=== PATIENT | female | born 1950 | race Caucasian/White ===

== ENCOUNTER 2021-04-20 14:16 | Inpatient (IN) ==
[2021-04-20] MEDS ORDERED: IOPAMIDOL 100 ML BOTTLE IV ONE (14:17)
[2021-04-20 15:23] LABS: Basophils # (Auto) 0.03 K/mcL (0.00-0.20); Basophils % (Auto) 0.2 % (0.0-2.0); Eosinophils # (Auto) 0.01 K/mcL (0.00-0.70); Eosinophils % (Auto) 0.1 % (0.0-7.0); Hematocrit 29.6 % (36.0-48.0); Lymphocytes # (Auto) 0.75 K/mcL (1.50-4.80); Lymphocytes % (Auto) 4.3 % (15.0-49.0); Mean Cell Volume 80.2 fL (80.0-100.0); Mean Corpuscular HGB Conc 30.4 g/dL (31.0-36.0); Mean Platelet Volume 11.6 fL (7.4-10.4); Monocytes # (Auto) 0.59 K/mcL (0.10-0.90); Monocytes % (Auto) 3.4 % (1.0-12.0); Platelet Count 208 K/mcL (140-440); RBC 3.69 M/mcL (4.00-5.20); Red Cell Distribution Width 16.4 % (11.5-14.5); WBC 17.3 K/mcL (4.5-11.0)
[2021-04-20] MEDS ORDERED: ONDANSETRON 4 MG/2 ML VIAL IV ONE (15:26)
[2021-04-20] MEDS ORDERED: morphine 4 MG/ML VIAL IV ONE ×2 (15:26→16:58)
--- NOTE | 2021-04-20 15:26 | Emergency Department Note ---
Abdominal Pain HPI General Chief Complaint: Abdominal Pain Stated Complaint: Abd pain Time Seen by Provider: 04/20/21 14:22 Source: patient Mode of arrival: ambulatory Limitations: no limitations History of Present Illness HPI Narrative: Narrative: 70-year-old female presents emergency department with complaints of right-sided abdominal pain. She reports it first started about 2 weeks ago but was not severe and then 2 days ago it started to get worse where she describes as constant squeezing-like pain that is in her right upper quadrant radiates to her right lower quadrant and around to her right flank. She has been having nausea and did vomit last night. She thinks that the pain is worsened with eating. She does fever, dysuria, urinary frequency or urgency, chest pain, shortness of breath, black or bloody stools, hematemesis. Related Data Home Medications Medication Instructions Recorded Confirmed acyclovir 5 gm TP PRN PRN 12/01/16 02/01/21 calcium carbonate 500 mg PO BID 12/01/16 04/20/21 multivitamin 1 each PO DAILY 12/01/16 04/20/21 L.acidophilus-B.lactis-B.longum 15 1 cap PO QDAY 02/06/19 02/01/21 billion cell capsule cholecalciferol (vitamin D3) 125 5,000 unit PO QDAY 02/06/19 02/01/21 mcg (5,000 unit) capsule epinephrine 0.3 mg/0.3 mL 0.3 mg IM ONCE 02/06/19 04/20/21 injection, auto-injector ascorbate calcium (vitamin C) 500 1 g PO BID tab 03/18/19 02/01/21 mg tablet CPAP machine #1 ea 09/04/19 02/01/21 Florajen3 1 cap PO 04/20/21 ascorbate calcium (vitamin C) 500 mg PO BID 04/20/21 04/20/21 [Denia-C] cholecalciferol (vitamin D3) 125 mcg PO QDAY 04/20/21 04/20/21 [Vitamin D3] mometasone-dimethicone 0 applic TOPICAL .COMPLEX 04/20/21 04/20/21 pravastatin 40 mg PO QDAY 04/20/21 04/20/21 valacyclovir [Valtrex] 2,000 mg PO Q12H 04/20/21 04/20/21 Previous Rx's Medication Instructions Recorded CPAP 9 to 15 cmH20 #1 ea 09/04/19 acyclovir 800 mg tablet 800 mg PO QDAY #10 tab 11/23/20 naproxen 500 mg tablet 250 mg PO Q12H #180 tab 11/23/20 amlodipine 5 mg tablet 5 mg PO QDAY #90 tab 01/24/21 levothyroxine 50 mcg tablet 50 mcg PO DAILY #90 tab 01/24/21 ramipril 2.5 mg capsule 2.5 mg PO QDAY #90 cap 01/24/21 Allergies Allergy/AdvReac Type Severity Reaction Status Date / Time Bee Pollen Allergy Severe Swelling Verified 04/20/21 14:17 nitrofurantoin Allergy Intermediate Abd Verified 04/20/21 17:09 [From Macrodantin] cramping/Blood in stool propoxyphene [From Darvon] Allergy Unknown Unknown Verified 04/20/21 14:17 atorvastatin AdvReac Intermediate Joint Pain Verified 04/20/21 14:17 compound for teeth AdvReac Intermediate Skin Uncoded 04/20/21 17:09 impressions peeling, burning Review of Systems ROS ROS Narrative: Narrative: Gastrointestinal: Reports abdominal pain, nausea and vomiting Musculoskeletal: Reports other PFSH Narrative Patient History Narrative: Narrative: Medical/Surgical/Family History All Active Problems (Updated 04/20/21 @ 17:19 by Pavel Mccormick MD) Pyelonephritis of right kidney (Acute) Encounter to establish care (Acute) HSV-1 (herpes simplex virus 1) infection (Acute) Aortic valve insufficiency (Acute) Medicare annual wellness visit, subsequent (Acute) LOVELY on CPAP (Chronic) Pain in joints of left hand (Chronic) Pain in joints of right hand (Chronic) Shingles (Chronic) Sleep apnea in adult (Chronic) Osteoarthritis involving multiple joints on both sides of body (Chronic) Bee sting allergy (Chronic) Hypothyroidism, unspecified (Chronic) Age-related osteoporosis without current pathological fracture (Chronic) Menopausal and female climacteric states (Chronic) Hyperlipidemia, unspecified (Chronic) Nonrheumatic aortic (valve) insufficiency (Chronic) Essential (primary) hypertension (Chronic) Rectocele (Chronic) Cystocele, midline (Chronic) Incomplete uterovaginal prolapse (Chronic) Medical History (Updated 04/20/21 @ 17:19 by Pavel Mccormick MD) Age-related osteoporosis without current pathological fracture Aortic valve insufficiency Bee sting allergy Cystocele, midline Encounter to establish care Essential (primary) hypertension HSV-1 (herpes simplex virus 1) infection Hyperlipidemia, unspecified Hypothyroidism, unspecified Incomplete uterovaginal prolapse Medicare annual wellness visit, subsequent Menopausal and female climacteric states Nonrheumatic aortic (valve) insufficiency LOVELY on CPAP Osteoarthritis involving multiple joints on both sides of body Pain in joints of left hand Pain in joints of right hand Rectocele Shingles Sleep apnea in adult Surgical History History of biopsy (~02/20/14) Vaginal History of hip surgery (~2007) R hip resurfaced-Dr Ramsay & 01/29/18 History of surgery 2008 hip resurface per patient. Family History Mother , at 78 yrs Heart disease Grandfather Colon cancer Paternal Grandmother Diabetes Father Heart disease Family/Other Multiple sclerosis Other Family history of coronary artery disease Family history of diabetes mellitus (DM) Social History Smoking Status: Never smoker Alcohol Intake Frequency: does not drink Exam Narrative Narrative: Narrative: Abdomen: There is voluntary guarding with palpation of each quadrant. There is more tenderness with palpation in right upper quadrant and left lower quadrant. There is pain over McBurney's point. There is positive Arceo sign. There is no rebound tenderness nondistended General Limitations: no limitations General appearance: Present other (mild distress) Eye Eye: Present EOMI Respiratory Respiratory: Present normal lung sounds bilaterally and other (No rhonchi rales or wheezes) Cardiovascular Cardiovascular: Present regular rate and normal rhythm Adbominal Abdominal: Present other Back Back: Present other (Mild right CVA tenderness) Neurological Neurological: Present alert and oriented X3 Psychiatric Psychiatric: Present normal affect and normal mood Skin Skin: Present warm (WNL), dry and normal color Course Vital Signs Vital signs: Vital Signs Temperature 98.1 F 04/20/21 14:17 Pulse Rate 86 04/20/21 14:17 Respiratory Rate 16 04/20/21 14:17 Blood Pressure 111/55 04/20/21 14:17 Pulse Oximetry (%) 95 04/20/21 14:17 Temperature 98.1 F 04/20/21 14:17 Pulse Rate 86 04/20/21 14:17 Respiratory Rate 16 04/20/21 14:17 Blood Pressure 111/55 04/20/21 14:17 Pulse Oximetry (%) 95 04/20/21 14:17 MDM MDM Narrative Medical decision making narrative: Narrative: Labs reviewed. There is a leukocytosis and an H&H is a low compared to December. CT of abdomen pelvis shows severe hydroureter and dilated renal pelvis of the right kidney and ureter. There is periuretic and perirenal stranding consistent with obstruction. Urine dip is nitrite positive. I have ordered 1 L of normal saline along with IV ceftriaxone. I spoke with the urologist Dr. Lin and due to the patient's symptoms he agreed to fit her into his schedule tomorrow afternoon for possible stent placement. He asked the patient to be admitted to the hospitalist for IV antibiotics and fluid resuscitation. Right upper quadrant limited ultrasound was negative Dr. Mccormick was consulted and he agreed to admit the patient for further evaluation and treatment with the Dr. Lin consulting tomorrow. Lab Data Result diagrams: 04/20/21 14:40 04/20/21 14:40 Labs: Lab Results 04/20/21 Range/Units 14:40 WBC 17.3 H (4.5-11.0) K/mcL RBC 3.69 L (4.00-5.20) M/mcL Hgb 9.0 L (12.0-15.0) g/dL Hct 29.6 L (36.0-48.0) % MCV 80.2 (80.0-100.0) fL MCH 24.4 L (26.0-34.0) pg MCHC 30.4 L (31.0-36.0) g/dL RDW 16.4 H (11.5-14.5) % Plt Count 208 (140-440) K/mcL MPV 11.6 H (7.4-10.4) fL Neut % (Auto) 92.0 H (38.0-78.0) % Lymph % (Auto) 4.3 L (15.0-49.0) % [place] % (Auto) 3.4 (1.0-12.0) % Eos % (Auto) 0.1 (0.0-7.0) % Baso % (Auto) 0.2 (0.0-2.0) % Lymph # (Auto) 0.75 L (1.50-4.80) K/mcL [place] # (Auto) 0.59 (0.10-0.90) K/mcL Eos # (Auto) 0.01 (0.00-0.70) K/mcL Baso # (Auto) 0.03 (0.00-0.20) K/mcL Absolute Neutrophils 15.90 H (1.80-8.00) K/mcL Discharge Plan Patient/Caregiver Discharge Instructions Pt seen by [employer]/PA only: Yes Clinical Impression: Hydronephrosis, Acute UTI Patient Disposition: Xfer As Inpt ([facility]) Condition: Serious Follow up with: Thalia Álvarez DO [Primary Care Provider] - Prescriptions: No Action naproxen [Naprosyn] 500 mg tablet 250 mg PO Q12H Qty: 180 RF: 0 acyclovir 800 mg tablet 800 mg PO QDAY Qty: 10 RF: 0 amlodipine 5 mg tablet 5 mg PO QDAY Qty: 90 RF: 1 ramipril 2.5 mg capsule 2.5 mg PO QDAY Qty: 90 RF: 1 levothyroxine 50 mcg tablet 50 mcg PO DAILY Qty: 90 RF: 1 epinephrine [EpiPen 2-Westley] 0.3 mg/0.3 mL auto-injector 0.3 mg IM ONCE RF: 0 cholecalciferol (vitamin D3) 5,000 unit capsule 5,000 unit PO QDAY RF: 0 Florajen3 460 mg (7.5-6- 1.5 bill. cell) capsule 1 cap PO QDAY RF: 0 ascorbate calcium (vitamin C) 500 mg tablet 1 g PO BID RF: 0 (DME) CPAP machine Qty: 1 RF: 0 (DME) CPAP 9 to 15 cmH20 Qty: 1 RF: 0 multivitamin 1 EACH tablet 1 each PO DAILY RF: 0 calcium carbonate 500 MG tablet 500 mg PO BID RF: 0 acyclovir 5 GM cream 5 gm TP PRN PRN (Reason: Mouth Sore Pain) RF: 0 pravastatin 40 mg Tablet 40 mg PO QDAY RF: 0 valacyclovir [Valtrex] 1 gram Tablet 2,000 mg PO Q12H RF: 0 ascorbate calcium (vitamin C) [Denia-C] 500 mg Tablet 500 mg PO BID RF: 0 cholecalciferol (vitamin D3) [Vitamin D3] 125 mcg (5,000 unit) Tablet 125 mcg PO QDAY RF: 0 mometasone-dimethicone 0.1-5 % Cream 0 applic TOPICAL .COMPLEX RF: 0 Florajen3 1 cap PO RF: 0
--- NOTE | 2021-04-20 15:34 | Cat Scan Report ---
INDICATION: RUQ and RLQ abdominal pain n/v x 2days COMPARISON: Previous examination dated 06/20/2013 TECHNIQUE: Axial images were obtained through the abdomen and pelvis. Sagittally and coronally reformatted images. 80 mL Isovue 370 injected intravenously. FINDINGS: Lung bases:Negative. No pulmonary parenchymal nodule. No pleural fluid or pericardial fluid. There is bilateral parenchymal density consistent with atelectasis There is cardiomegaly. This is unchanged Liver:Negative. No focal intrahepatic mass. No focal abnormality. Liver contour is smooth. No evidence for cirrhosis Gallbladder, bilary:No calcified gallstones. No gallbladder wall thickening. No dilated intra or extrahepatic bile ducts. Spleen:No splenomegaly. Normal enhancement of splenic and portal veins. Pancreas:No pancreatic mass. No peripancreatic abnormality Adrenal glands:Negative Kidneys, ureters, bladder:Left kidney is negative. No left hydronephrosis. No detectable calculi. No solid or cystic left renal mass. There has been significant interval improvement. Previous examination demonstrated left hydronephrosis and enlargement of the left renal pelvis. Left ureter was dilated. The left ureter presently is within normal limits. Severe right hydronephrosis with marked dilatation of the right renal pelvis and ureter. Right ureter is dilated to the urinary bladder. The pelvis, however, is poorly evaluated due to extensive beam hardening artifact from bilateral total hip arthroplasty. There is no detectable right ureteral stone. There is infiltration of retroperitoneal fat. This is perinephric and periureteric within the posterior pararenal space. This may indicate acute recurrent obstruction and dilatation. There are right renal cysts. No solid mass. Bladder is not well-visualized. Gastrointestinal:No detectable colonic mass. There is no diverticulitis. Small bowel is negative. No mechanical small bowel obstruction. Stomach and duodenum are unremarkable Appendix: The appendix is negative Vascular:There is calcified plaque in the abdominal aorta. No abdominal aortic aneurysm. There is calcification of the origins of the celiac trunk and superior mesenteric artery. No significant stenosis Lymphatic:No retroperitoneal or mesenteric adenopathy Mesentery, peritoneum: No free intraperitoneal fluid. No intra-abdominal abscess Reproductive:Uterus is suboptimally visualized. No adnexal mass. Patient has a history of pelvic floor prolapse. There is a pessary in place. Musculoskeletal: Multilevel degenerative disc disease in the lumbar spine No lumbar compression fractures. Sacrum and pelvis are negative. Bilateral total hip proper plasty No abdominal wall or inguinal hernia IMPRESSION: 1. Interval resolution of left hydronephrosis and hydroureter 2. Marked dilatation of right renal pelvis and right ureter. This may be persistent or recurrent. No detectable calculi 3. Infiltration of periureteric and perirenal fat consistent with obstruction 4. History of pelvic floor relaxation. There is a pessary in place 5. Multilevel degenerative disc disease 6. Atherosclerotic calcification 7. Cardiomegaly 8. Negative appendix The exam was performed using radiation dose optimization techniques including, but not limited to, automated exposure control, adjustment of the mA and/or kV according to patient size and use of iterative reconstruction technique. Interpreted and Authenticated by: Jarrell Bolden 04/20/21
[2021-04-20 15:43] LABS: ALT/SGPT 9 U/L (<40); AST/SGOT 17 U/L (<32); Albumin 3.7 gm/dL (3.2-5.2); Albumin/Globulin Ratio 1.5 (1.0-2.3); Alkaline Phosphatase 68 U/L (39-117); Bilirubin,Total 0.6 mg/dL (0.1-1.0); Blood Urea Nitrogen 28 mg/dL (8-23); Calcium 9.4 mg/dL (8.6-10.4); Carbon Dioxide 25 mmol/L (22-30); Chloride 104 mmol/L (96-108); Globulin 2.5 gm/dL (2.2-3.7); Glomerular Filtration Rate 56; Glucose 91 mg/dL (70-105)
--- NOTE | 2021-04-20 15:56 | Ultrasound Report ---
INDICATION: RUQ and RLQ abdominal pain n/v x 2days TECHNIQUE: Grayscale and color flow Doppler spectral imaging COMPARISON: CT scan dated 04/20/2021 FINDINGS: Gallbladder:Negative. No cholelithiasis. No gallbladder wall thickening or pericholecystic fluid Common bile duct:Common bile duct is mildly dilated. No intrahepatic bile duct dilatation. No detectable choledocholithiasis. Common bile duct measures9 mm maximally Liver:Normal homogeneous hepatic parenchyma. No hepatic mass. Liver [id number] cm Portal vein:Normal hepatopedal portal venous flow Pancreas:Visualized portions of the pancreas are normal Right kidney:There is right hydronephrosis with marked dilatation of the right renal pelvis. There are benign right renal cysts. No solid mass. No detectable calculi. Right kidney [id number] x 3.1 x 4.9 cm IMPRESSION: 1. Negative gallbladder 2. Prominent common bile duct without detectable choledocholithiasis. No intrahepatic bile duct dilatation 3. Right hydronephrosis as demonstrated on previous CT scan Interpreted and Authenticated by: Jarrell Bolden 04/20/21
[2021-04-20] MEDS ORDERED: 0.9 % SODIUM CHLORIDE 1,000 ML IV ONE (16:01)
[2021-04-20] MEDS ORDERED: cefTRIAXone 1 GM VIAL IM ONE (16:01)
[2021-04-20] MEDS ORDERED: cefTRIAXone 1 GM VIAL IV ONE (16:12)
[2021-04-20 16:38] LABS: Appearance,Urine CLOUDY (Clear); Bacteria,Urine MOD /hpf (0); Bilirubin,Urine NEG (Negative); Color,Urine YELLOW; Glucose,Urine (UA) NEG (Negative); Ketones,Urine 5 mg/dL (Negative); Leukocyte Esterase,Urine 500 /ug (Negative); Nitrate,Urine POS (Negative); Protein,Urine 30 mg/dL (Negative); Specific Gravity,Urine 1.047 (1.000-1.035); Urine RBC 12 /hpf (0-3); Urine Squamous Epithelial Cell 9 /hpf (0-4); Urine WBC > 182 /hpf (0-4); Urobilinogen,Urine NEG
[2021-04-20] MEDS ORDERED: ONDANSETRON 4 MG/2 ML VIAL IV PRN (16:59)
[2021-04-20] MEDS ORDERED: ACETAMINOPHEN 325 MG TABLET PO PRN (17:01)
[2021-04-20] MEDS ORDERED: traZODone HCL 50 MG TABLET PO PRN (17:01)
[2021-04-20] MEDS ORDERED: morphine 4 MG/ML VIAL IV PRN (17:01)
[2021-04-20] MEDS ORDERED: valACYclovir 1,000 MG TABLET PO PRN (17:10)
--- NOTE | 2021-04-20 17:10 | Internal Med History&Physical ---
HPI History of Present Illness Patient information: Note initiated : 04/20/21 at 5:08 pm Service Date, if different from initiated Date: [] Patient: Lore Howell a 70 y/o F admitted on for Abd pain. Chief Complaint: [RUQ and RLQ abdominal pain] History of present illness: Ms. Howell is a 70 year old F history of essential hypertension, mixed dyslipidemia, hypothyroidism, bilateral hip osteoarthritis, obstructive sleep apnea on CPAP, presenting with 1 month history of right upper and lower quadrant abdominal pain. She denies any prior similar episode. She denies any associated trauma or injury. She has acute onset right upper quadrant and right lower quadrant abdominal pain with radiations to the back. Severe T of the pain 6 out of 10 to 8 out of 10. The pain is sharp in nature. The pain is intermittent. Laying flat with partially alleviate the pain. There does not seem to be any particular exacerbating factors. Associated symptoms including mild nausea since 2 days ago. Denies any urinary symptoms suggest dysuria, increasing urinary frequency or urgency. Denies any fever, chills, or diaphoresis. Denies any general body weakness or change in appetite. Her symptoms got worse since 2 days ago so she decided to come to our ED for evaluation today. Vital signs within normal limits. Labs significant for leukocytosis with WBC 17.3. UA suggestive presence of urinary tract infections. Abdominal pelvis CT shows the presence of [place] ureter and hydronephrosis of the right side suspecting of downstream obstructions. No stone was visualized, though. Constitutional Constitutional: Absent chills, excessive sweating, fatigue, fever(s) and weakness EENT Eyes: Absent blurry vision, change in vision, loss of vision and other visual disturbances Ears: Absent decreased hearing and tinnitus Nose, mouth and throat: Absent abnormal hearing, dry mouth, headache(s), nasal congestion and sore throat Cardiovascular Cardiovascular: Absent chest pain, chest pain at rest, edema, irregular heart rhythm and palpatations Respiratory Respiratory: Absent cough, dyspnea and wheezing Gastrointestinal Gastrointestinal: Present abdominal pain and nausea; Absent constipation, diarrhea and vomiting Musculoskeletal Musculoskeletal: Present back pain; Absent deformity, limited range of motion, muscle cramps, muscle weakness and numbness Integumentary Integumentary: Absent lesions, rash and wounds Neurological Neurological: Absent focal weakness, headache(s) and numbness Psychiatric Psychiatric: Absent anxiety, depression and hallucinations PFSH PFSH All Active Problems (Updated 04/20/21 @ 17:24 by Pavel Mccormick MD) Hypochromic anemia (Acute) Pyelonephritis of right kidney (Acute) Encounter to establish care (Acute) HSV-1 (herpes simplex virus 1) infection (Acute) Aortic valve insufficiency (Acute) Medicare annual wellness visit, subsequent (Acute) LOVELY on CPAP (Chronic) Pain in joints of left hand (Chronic) Pain in joints of right hand (Chronic) Shingles (Chronic) Sleep apnea in adult (Chronic) Osteoarthritis involving multiple joints on both sides of body (Chronic) Bee sting allergy (Chronic) Hypothyroidism, unspecified (Chronic) Age-related osteoporosis without current pathological fracture (Chronic) Menopausal and female climacteric states (Chronic) Hyperlipidemia, unspecified (Chronic) Nonrheumatic aortic (valve) insufficiency (Chronic) Essential (primary) hypertension (Chronic) Rectocele (Chronic) Cystocele, midline (Chronic) Incomplete uterovaginal prolapse (Chronic) Medical History (Updated 04/20/21 @ 17:24 by Pavel Mccormick MD) Age-related osteoporosis without current pathological fracture Aortic valve insufficiency Bee sting allergy Cystocele, midline Encounter to establish care Essential (primary) hypertension HSV-1 (herpes simplex virus 1) infection Hyperlipidemia, unspecified Hypothyroidism, unspecified Incomplete uterovaginal prolapse Medicare annual wellness visit, subsequent Menopausal and female climacteric states Nonrheumatic aortic (valve) insufficiency LOVELY on CPAP Osteoarthritis involving multiple joints on both sides of body Pain in joints of left hand Pain in joints of right hand Rectocele Shingles Sleep apnea in adult Surgical History History of biopsy (~02/20/14) Vaginal History of hip surgery (~2007) R hip resurfaced-Dr Ramsay & 01/29/18 History of surgery 2008 hip resurface per patient. Family History Mother , at 78 yrs Heart disease Grandfather Colon cancer Paternal Grandmother Diabetes Father Heart disease Family/Other Multiple sclerosis Other Family history of coronary artery disease Family history of diabetes mellitus (DM) Social History alcohol intake frequency: does not drink MEDS/ALLERGIES Home Medications and Allergies Home Medications Medication Instructions Recorded Confirmed Type acyclovir 5 gm TP PRN PRN 12/01/16 02/01/21 History calcium carbonate 500 mg PO BID 12/01/16 04/20/21 History multivitamin 1 each PO DAILY 12/01/16 04/20/21 History L.acidophilus-B.lactis-B.longum 15 1 cap PO QDAY 02/06/19 02/01/21 History billion cell capsule cholecalciferol (vitamin D3) 125 5,000 unit PO QDAY 02/06/19 02/01/21 History mcg (5,000 unit) capsule epinephrine 0.3 mg/0.3 mL 0.3 mg IM ONCE 02/06/19 04/20/21 History injection, auto-injector ascorbate calcium (vitamin C) 500 1 g PO BID tab 03/18/19 02/01/21 History mg tablet CPAP 9 to 15 cmH20 #1 ea 09/04/19 02/01/21 Rx CPAP machine #1 ea 09/04/19 02/01/21 History acyclovir 800 mg tablet 800 mg PO QDAY #10 tab 11/23/20 02/01/21 Rx naproxen 500 mg tablet 250 mg PO Q12H #180 tab 11/23/20 04/20/21 Rx amlodipine 5 mg tablet 5 mg PO QDAY #90 tab 01/24/21 04/20/21 Rx levothyroxine 50 mcg tablet 50 mcg PO DAILY #90 tab 01/24/21 04/20/21 Rx ramipril 2.5 mg capsule 2.5 mg PO QDAY #90 cap 01/24/21 04/20/21 Rx Florajen3 1 cap PO 04/20/21 History ascorbate calcium (vitamin C) 500 mg PO BID 04/20/21 04/20/21 History [Denia-C] cholecalciferol (vitamin D3) 125 mcg PO QDAY 04/20/21 04/20/21 History [Vitamin D3] mometasone-dimethicone 0 applic TOPICAL .COMPLEX 04/20/21 04/20/21 History pravastatin 40 mg PO QDAY 04/20/21 04/20/21 History valacyclovir [Valtrex] 2,000 mg PO Q12H 04/20/21 04/20/21 History Allergies Allergy/AdvReac Type Severity Reaction Status Date / Time Bee Pollen Allergy Severe Swelling Verified 04/20/21 14:17 nitrofurantoin Allergy Intermediate Abd Verified 04/20/21 17:09 [From Macrodantin] cramping/Blood in stool propoxyphene [From Darvon] Allergy Unknown Unknown Verified 04/20/21 14:17 atorvastatin AdvReac Intermediate Joint Pain Verified 04/20/21 14:17 compound for teeth AdvReac Intermediate Skin Uncoded 04/20/21 17:09 impressions peeling, burning EXAM Constitutional Vitals: Temp Pulse Resp BP Pulse Ox 36.7 C 80 16 119/90 96 04/20/21 14:17 04/20/21 17:02 04/20/21 14:17 04/20/21 17:02 04/20/21 17:02 General appearance: cooperative and no acute distress Head Head exam: Present atraumatic and normocephalic Eye Eye exam: Present EOMI and PERRL ENT ENT exam: Present mucous membranes moist, normal exam and normal external ear exam Neck Neck exam: Present normal inspection; Absent lymphadenopathy, tenderness and thyromegaly Respiratory Respiratory exam: Absent accessory muscle use, respiratory distress and wheezes Cardiovascular Cardiovascular exam: Present normal rate and rhythm; Absent JVD GI/Abdominal GI/Abdominal exam: Present normal bowel sounds, soft, guarding and tenderness; Absent organomegaly and rebound Extremities Exam Extremities exam: Present full ROM, normal capillary refill and normal inspection; Absent tenderness Neurological Exam Neurological exam: Present alert, CN II-XII intact and oriented X3; Absent motor sensory deficit Psychiatric Psychiatric exam: Present normal affect and normal mood; Absent anxious and depressed Skin Skin exam: Present dry and intact DATA Data Completed and Pending Labs: Labs from last 24 hours 04/20/21 04/20/21 04/20/21 15:44 14:40 14:40 WBC 17.3 H RBC 3.69 L Hgb 9.0 L Hct 29.6 L MCV 80.2 MCH 24.4 L MCHC 30.4 L RDW 16.4 H Plt Count 208 MPV 11.6 H Neut % (Auto) 92.0 H Lymph % (Auto) 4.3 L [place] % (Auto) 3.4 Eos % (Auto) 0.1 Baso % (Auto) 0.2 Lymph # (Auto) 0.75 L [place] # (Auto) 0.59 Eos # (Auto) 0.01 Baso # (Auto) 0.03 Absolute Neutrophils 15.90 H Sodium 135 Potassium 3.5 Chloride 104 Carbon Dioxide 25 Anion Gap 6.0 L BUN 28 H Creatinine 1.0 GFR Calculation 56 Glucose 91 Calcium 9.4 Total Bilirubin 0.6 AST 17 ALT 9 Alkaline Phosphatase 68 Total Protein 6.2 Albumin 3.7 Globulin 2.5 Albumin/Globulin Ratio 1.5 Lipase 12 Urine Color Yellow Urine Appearance Cloudy A Urine pH 6.0 Ur Specific [place] 1.047 Urine Protein 30 A Urine Glucose (UA) Neg Urine Ketones 5 A Urine Occult Blood 0.20 Urine Nitrate Pos A Urine Bilirubin Neg Urine Urobilinogen Neg Ur Leukocyte Esterase 500 A Urine RBC 12 H Urine WBC > 182 H Ur Squamous Epith Cells 9 H Urine Bacteria Mod A A/P Assessment and plan (1) LOVELY on CPAP: Status: Chronic (2) Shingles: Status: Chronic (3) Hypothyroidism, unspecified: Status: Chronic (4) Hyperlipidemia, unspecified: Status: Chronic (5) Essential (primary) hypertension: Status: Chronic (6) Pyelonephritis of right kidney: Status: Acute (7) Hypochromic anemia: Status: Acute Narrative A/P Narrative: 1. Right pyelonephritis with associated hydronephrosis and hydroureter, possible downstream obstruction: Admit to inpatient med surg Serial lactic acid Procalcitonin Blood culture X2 Urine culture NS 1L bolus given in the ED, to be followed by NS@100c/hr Rocephin 2gm IV daily cbc w/ auto diff in the morning to trend WBC Tylenol PRN fever Zofran IV PRN nausea vomiting Oxycodone PRN moderate pain Morphine IV PRN severe pain Dr. Lin urologist consulted for possible urinary stent placement on 04/21 NPO after midnight for the planned procedure 2. Essential HTN: Currently normotensive Continue home regimen of oral antihypertensives (Amlodipine, Ramipril) 3. Mixed dyslipidemia: Continue statin therapy 4. Hypothyroidism: Continue thyroid replacement therapy 5. LOVELY on CPAP: Continue CPAP at night while sleeping 6. Bilateral hip osteoarthritis: Naproxen Oxycodone PRN moderate pain Morphine IV PRN severe pain 7. Hypochromic anemia: Iron panel Folate level Vitamin B12 level cbc w/ auto diff in the morning to trend H/H; transfuse pRBC if hemoglobin <7.0, active bleeding, or symptomatic GI ppx: not currently indicated DVT ppx: SCDs Code status: Full Prognosis: guarded Disposition: inpatient med surg Time Spent With Patient Time: Total time spent is greater than 50% in coordination of care (as documented) at patient's floor/unit and/or counseling patient: Total time spent with greater than 50% in coordination of care (as documented) at patient's floor/unit and/or counseling patient:: 25 - 35 minutes
[2021-04-20] MEDS: 0.9 % SODIUM CHLORIDE 1,000 ML IV SCH (19:11)
[2021-04-20] MEDS ORDERED: SIMVASTATIN 20 MG TABLET PO SCH (21:00)
[2021-04-20] MEDS ORDERED: SENNOSIDES 1 TABLET PO SCH (21:00)
[2021-04-20] MEDS: 0.9 % SODIUM CHLORIDE 10 ML SYRINGE IV SCH (22:07)
[2021-04-20] MEDS: DOCUSATE SODIUM 100 MG CAPSULE PO SCH (22:07)
[2021-04-20] MEDS: CALCIUM (OYSTER SHELL) 500 MG TABLET PO SCH (22:08)
[2021-04-20] MEDS: ASCORBIC ACID 500 MG TABLET PO SCH (22:08)
[2021-04-20] MEDS: oxyCODONE HCL 5 MG TABLET PO PRN (23:19)
[2021-04-21] MEDS: 0.9 % SODIUM CHLORIDE 1,000 ML IV SCH ×2 (04:36→13:10)
[2021-04-21] MEDS: 0.9 % SODIUM CHLORIDE 10 ML SYRINGE IV SCH ×2 (04:59→13:10)
[2021-04-21] MEDS: oxyCODONE HCL 5 MG TABLET PO PRN (05:46)
[2021-04-21 06:57] LABS: Basophils # (Auto) 0.02 K/mcL (0.00-0.20); Basophils % (Auto) 0.2 % (0.0-2.0); Eosinophils # (Auto) 0.05 K/mcL (0.00-0.70); Eosinophils % (Auto) 0.4 % (0.0-7.0); Hematocrit 26.2 % (36.0-48.0); Hemoglobin 7.8 g/dL (12.0-15.0); Lymphocytes # (Auto) 0.48 K/mcL (1.50-4.80); Lymphocytes % (Auto) 3.7 % (15.0-49.0); Mean Cell Volume 81.9 fL (80.0-100.0); Mean Corpuscular HGB Conc 29.8 g/dL (31.0-36.0); Monocytes # (Auto) 0.37 K/mcL (0.10-0.90); Monocytes % (Auto) 2.8 % (1.0-12.0); Platelet Count 188 K/mcL (140-440); Red Cell Distribution Width 16.5 % (11.5-14.5)
[2021-04-21 07:16] LABS: ALT/SGPT 6 U/L (<40); AST/SGOT 11 U/L (<32); Albumin/Globulin Ratio 1.3 (1.0-2.3); Alkaline Phosphatase 63 U/L (39-117); Bilirubin,Total 0.3 mg/dL (0.1-1.0); Blood Urea Nitrogen 27 mg/dL (8-23); Calcium 8.1 mg/dL (8.6-10.4); Carbon Dioxide 23 mmol/L (22-30); Chloride 108 mmol/L (96-108); Globulin 2.3 gm/dL (2.2-3.7); Glomerular Filtration Rate 56; Glucose 96 mg/dL (70-105)
[2021-04-21] MEDS ORDERED: LEVOTHYROXINE 50 MCG TABLET PO SCH (07:30)
[2021-04-21] MEDS ORDERED: NAPROXEN 250 MG TABLET PO SCH (08:00)
[2021-04-21] MEDS: CALCIUM (OYSTER SHELL) 500 MG TABLET PO SCH (08:22)
[2021-04-21] MEDS: ASCORBIC ACID 500 MG TABLET PO SCH (08:22)
[2021-04-21] MEDS: DOCUSATE SODIUM 100 MG CAPSULE PO SCH (08:22)
[2021-04-21] MEDS ORDERED: cefTRIAXone 2 GM in DEXTROSE 5% IN WATER 50 ML IV SCH (09:00)
[2021-04-21] MEDS ORDERED: RAMIPRIL 2.5 MG CAPSULE PO SCH (09:00)
[2021-04-21] MEDS ORDERED: [UNRECOGNIZED DRUG - OTHER] TOPICAL SCH (09:00)
[2021-04-21] MEDS ORDERED: MULTIVIT,THER IRON,CA,FA & MIN 1 TABLET PO SCH (09:00)
[2021-04-21] MEDS ORDERED: FLORAJEN3 PO SCH (09:00)
[2021-04-21] MEDS ORDERED: VITAMIN D3 5,000 UNIT CAPSULE PO SCH (09:00)
[2021-04-21] MEDS ORDERED: amLODIPine 5 MG TABLET PO SCH (09:00)
[2021-04-21 09:36] LABS: Neutrophils % (Auto) 92.9 % (38.0-78.0)
--- NOTE | 2021-04-21 09:52 | EKG ---
[facility] Test Date: 2021-04-21 Pat Name: Lore Howell Department: MEDR Room: 125 Gender: Female Intelligence Operations Specialist: : 1950 Requested By: Melani Miguel Order Number: [id number] Reading MD: Sav Gaffney M.D. Measurements Intervals [place] Rate: 82 P: 49 TX: 184 QRS: 1 QRSD: 92 T: 20 QT: 368 QTc: 430 Interpretive Statements SINUS RHYTHM LEFT ATRIAL ABNORMALITY BORDERLINE R WAVE PROGRESSION, ANTERIOR LEADS BORDERLINE T ABNORMALITIES, ANTERIOR LEADS NO PRIOR TRACING FOR COMPARISON Electronically Signed On 04-21-2021 9:51:00 PDT by Sav Gaffney M.D. /store/M0/[id number]/ecg/[id number]
--- NOTE | 2021-04-21 10:45 | General Surgery Consult Note ---
HPI Data of Consult Primary Care Provider: Thalia Álvarez DO Consult Narrative cc:: CC: Pavel Mccormick MD This is a 70-year-old female has had a intermittent episodes of right flank aching and pain which is variable in intensity and was sometimes resolved completely without treatment. Overall the episodes are becoming more frequent and more severe. She has no prior history of kidney stones. A 1-1/2 days ago the discomfort got worse and she ended up in the emergency room last night because of the pain. In the emergency room her urine was positive for red cells white cells and nitrites. A CT shows an obstructed right distal ureter with hydronephrosis. The distal ureter itself was obscured by artifact from her hip replacement prosthesis. She did have 6 urinary tract infections back to back 5 years ago and was told that she had significant cystocele. Its unclear whether this may be contributing to the hydronephrosis. She is in at this time for ureteroscopy to rule out stone and for stenting regardless of whether there is a stone there or not because of the amount of obstruction. The patient denies any other urologic history of trauma, surgery, infection or stone. Constitutional Constitutional: Present other (Flank pain right) EENT Eyes: Present as per HPI Ears: Present decreased hearing Nose, mouth and throat: Present as per HPI Respiratory Respiratory: Present as per HPI Genitourinary Genitourinary: Present as per HPI PFSH PFSH All Active Problems (Updated 04/21/21 @ 10:52 by Kyle Lin MD) Hydronephrosis of right kidney (Acute) Hypochromic anemia (Acute) Pyelonephritis of right kidney (Acute) Encounter to establish care (Acute) HSV-1 (herpes simplex virus 1) infection (Acute) Aortic valve insufficiency (Acute) Medicare annual wellness visit, subsequent (Acute) LOVELY on CPAP (Chronic) Pain in joints of left hand (Chronic) Pain in joints of right hand (Chronic) Shingles (Chronic) Sleep apnea in adult (Chronic) Osteoarthritis involving multiple joints on both sides of body (Chronic) Bee sting allergy (Chronic) Hypothyroidism, unspecified (Chronic) Age-related osteoporosis without current pathological fracture (Chronic) Menopausal and female climacteric states (Chronic) Hyperlipidemia, unspecified (Chronic) Nonrheumatic aortic (valve) insufficiency (Chronic) Essential (primary) hypertension (Chronic) Rectocele (Chronic) Cystocele, midline (Chronic) Incomplete uterovaginal prolapse (Chronic) Medical History (Updated 04/21/21 @ 10:52 by Kyle Lin MD) Age-related osteoporosis without current pathological fracture Aortic valve insufficiency Bee sting allergy Cystocele, midline Encounter to establish care Essential (primary) hypertension HSV-1 (herpes simplex virus 1) infection Hyperlipidemia, unspecified Hypothyroidism, unspecified Incomplete uterovaginal prolapse Medicare annual wellness visit, subsequent Menopausal and female climacteric states Nonrheumatic aortic (valve) insufficiency LOVELY on CPAP Osteoarthritis involving multiple joints on both sides of body Pain in joints of left hand Pain in joints of right hand Rectocele Shingles Sleep apnea in adult Surgical History History of biopsy (~02/20/14) Vaginal History of hip surgery (~2007) R hip resurfaced-Dr Ramsay & 01/29/18 History of surgery 2008 hip resurface per patient. Family History Mother , at 78 yrs Heart disease Grandfather Colon cancer Paternal Grandmother Diabetes Father Heart disease Family/Other Multiple sclerosis Other Family history of coronary artery disease Family history of diabetes mellitus (DM) Social History alcohol intake frequency: does not drink MEDS/ALLERGIES Home Medications and Allergies Home Medications Medication Instructions Recorded Confirmed Type acyclovir 5 gm TP PRN PRN 12/01/16 04/20/21 History calcium carbonate 500 mg PO BID 12/01/16 04/20/21 History multivitamin 1 each PO DAILY 12/01/16 04/20/21 History cholecalciferol (vitamin D3) 125 5,000 unit PO QDAY 02/06/19 04/20/21 History mcg (5,000 unit) capsule epinephrine 0.3 mg/0.3 mL 0.3 mg IM ONCE 02/06/19 04/20/21 History injection, auto-injector ascorbate calcium (vitamin C) 500 1 g PO BID tab 03/18/19 04/20/21 History mg tablet CPAP machine #1 ea 09/04/19 04/20/21 History acyclovir 800 mg tablet 800 mg PO QDAY #10 tab 11/23/20 04/20/21 Rx naproxen 500 mg tablet 250 mg PO Q12H #180 tab 11/23/20 04/20/21 Rx amlodipine 5 mg tablet 5 mg PO QDAY #90 tab 01/24/21 04/20/21 Rx levothyroxine 50 mcg tablet 50 mcg PO DAILY #90 tab 01/24/21 04/20/21 Rx ramipril 2.5 mg capsule 2.5 mg PO QDAY #90 cap 01/24/21 04/20/21 Rx CPAP 9 to 15 cmH20 04/20/21 04/20/21 History Florajen3 1 cap PO DAILY 04/20/21 04/21/21 History mometasone-dimethicone 0 applic TOPICAL .COMPLEX 04/20/21 04/20/21 History pravastatin 40 mg PO QDAY 04/20/21 04/20/21 History valacyclovir [Valtrex] 2,000 mg PO Q12H 04/20/21 04/20/21 History Allergies Allergy/AdvReac Type Severity Reaction Status Date / Time bee venom protein (honey bee) Allergy Severe Anaphylaxis Verified 04/20/21 19:39 propoxyphene [From Darvon] Allergy Unknown Unknown Verified 04/20/21 19:38 adhesive tape AdvReac Intermediate Blister Verified 04/20/21 19:40 atorvastatin AdvReac Intermediate Joint Pain Verified 04/20/21 19:38 nitrofurantoin AdvReac Intermediate Abd Verified 04/21/21 06:34 [From Macrodantin] cramping/Blood in stool compound for teeth AdvReac Intermediate Skin Uncoded 04/20/21 17:09 impressions peeling, burning Physical Examination Vital Signs Vital signs: Temp Pulse Resp BP Pulse Ox 97.6 F 83 16 105/50 94 04/21/21 07:27 04/21/21 07:27 04/21/21 07:27 04/21/21 07:27 04/21/21 07:27 General physical appearance General physical exam: moderate distress Eyes Eye exam: normal ocular movement Head Head exam IM: Present normocephalic Cardiovascular Cardiovascular exam IM: Present normal rate and rhythm Respiratory Respiratory exam: normal respiratory effort Abdomen Abdomen: Present soft Results Labs Result diagrams: 04/21/21 05:20 04/21/21 05:20 Labs: Abnormal lab results 0604/20/21 04/20/21 Range/Units 14:40 14:40 14:40 WBC 17.3 H (4.5-11.0) K/mcL RBC 3.69 L (4.00-5.20) M/mcL Hgb 9.0 L (12.0-15.0) g/dL Hct 29.6 L (36.0-48.0) % MCH 24.4 L (26.0-34.0) pg MCHC 30.4 L (31.0-36.0) g/dL RDW 16.4 H (11.5-14.5) % MPV 11.6 H (7.4-10.4) fL Neut % (Auto) 92.0 H (38.0-78.0) % Lymph % (Auto) 4.3 L (15.0-49.0) % Lymph # (Auto) 0.75 L (1.50-4.80) K/mcL Absolute Neutrophils 15.90 H (1.80-8.00) K/mcL Anion Gap 6.0 L (8.0-16.0) BUN 28 H (8-23) mg/dL Calcium (8.6-10.4) mg/dL Iron (37-145) ug/dL Transferrin % Sat (15-50) % Total Protein (5.9-8.4) gm/dL Albumin (3.2-5.2) gm/dL Procalcitonin 0.97 H (<0.10) ng/mL Urine Appearance (Clear) Urine Protein (Negative) mg/dL Urine Ketones (Negative) mg/dL Urine Nitrate (Negative) Ur Leukocyte Esterase (Negative) /ug Urine RBC (0-3) /hpf Urine WBC (0-4) /hpf Ur Squamous Epith Cells (0-4) /hpf Urine Bacteria (0) /hpf 04/20/21 04/20/21 04/21/21 Range/Units 15:44 17:40 05:20 WBC 13.0 H (4.5-11.0) K/mcL RBC 3.20 L (4.00-5.20) M/mcL Hgb 7.8 L (12.0-15.0) g/dL Hct 26.2 L (36.0-48.0) % MCH 24.4 L (26.0-34.0) pg MCHC 29.8 L (31.0-36.0) g/dL RDW 16.5 H (11.5-14.5) % MPV 12.0 H (7.4-10.4) fL Neut % (Auto) 92.9 H (38.0-78.0) % Lymph % (Auto) 3.7 L (15.0-49.0) % Lymph # (Auto) 0.48 L (1.50-4.80) K/mcL Absolute Neutrophils 12.09 H (1.80-8.00) K/mcL Anion Gap (8.0-16.0) BUN (8-23) mg/dL Calcium (8.6-10.4) mg/dL Iron 8 L (37-145) ug/dL Transferrin % Sat 3 L (15-50) % Total Protein (5.9-8.4) gm/dL Albumin (3.2-5.2) gm/dL Procalcitonin (<0.10) ng/mL Urine Appearance Cloudy A (Clear) Urine Protein 30 A (Negative) mg/dL Urine Ketones 5 A (Negative) mg/dL Urine Nitrate Pos A (Negative) Ur Leukocyte Esterase 500 A (Negative) /ug Urine RBC 12 H (0-3) /hpf Urine WBC > 182 H (0-4) /hpf Ur Squamous Epith Cells 9 H (0-4) /hpf Urine Bacteria Mod A (0) /hpf // Range/Units 05:20 WBC (4.5-11.0) K/mcL RBC (4.00-5.20) M/mcL Hgb (12.0-15.0) g/dL Hct (36.0-48.0) % MCH (26.0-34.0) pg MCHC (31.0-36.0) g/dL RDW (11.5-14.5) % MPV (7.4-10.4) fL Neut % (Auto) (38.0-78.0) % Lymph % (Auto) (15.0-49.0) % Lymph # (Auto) (1.50-4.80) K/mcL Absolute Neutrophils (1.80-8.00) K/mcL Anion Gap 7.0 L (8.0-16.0) BUN 27 H (8-23) mg/dL Calcium 8.1 L (8.6-10.4) mg/dL Iron (37-145) ug/dL Transferrin % Sat (15-50) % Total Protein 5.3 L (5.9-8.4) gm/dL Albumin 3.0 L (3.2-5.2) gm/dL Procalcitonin (<0.10) ng/mL Urine Appearance (Clear) Urine Protein (Negative) mg/dL Urine Ketones (Negative) mg/dL Urine Nitrate (Negative) Ur Leukocyte Esterase (Negative) /ug Urine RBC (0-3) /hpf Urine WBC (0-4) /hpf Ur Squamous Epith Cells (0-4) /hpf Urine Bacteria (0) /hpf Diabetes panel 04/20/21 04/21/21 Range/Units 14:40 05:20 Sodium 135 138 (133-145) mmol/L Potassium 3.5 3.5 (3.3-5.1) mmol/L Chloride 104 108 (96-108) mmol/L Carbon Dioxide 25 23 (22-30) mmol/L BUN 28 H 27 H (8-23) mg/dL Creatinine 1.0 1.0 (0.6-1.1) mg/dL Glucose 91 96 (70-105) mg/dL Calcium 9.4 8.1 L (8.6-10.4) mg/dL AST 17 11 (<32) U/L ALT 9 6 (<40) U/L Alkaline Phosphatase 68 63 (39-117) U/L Total Protein 6.2 5.3 L (5.9-8.4) gm/dL Albumin 3.7 3.0 L (3.2-5.2) gm/dL Calcium panel 04/20/21 04/21/21 Range/Units 14:40 05:20 Calcium 9.4 8.1 L (8.6-10.4) mg/dL Albumin 3.7 3.0 L (3.2-5.2) gm/dL Pituitary panel 04/20/21 04/21/21 Range/Units 14:40 05:20 Sodium 135 138 (133-145) mmol/L Potassium 3.5 3.5 (3.3-5.1) mmol/L Chloride 104 108 (96-108) mmol/L Carbon Dioxide 25 23 (22-30) mmol/L BUN 28 H 27 H (8-23) mg/dL Creatinine 1.0 1.0 (0.6-1.1) mg/dL Glucose 91 96 (70-105) mg/dL Calcium 9.4 8.1 L (8.6-10.4) mg/dL Adrenal panel 04/20/21 04/21/21 Range/Units 14:40 05:20 Sodium 135 138 (133-145) mmol/L Potassium 3.5 3.5 (3.3-5.1) mmol/L Chloride 104 108 (96-108) mmol/L Carbon Dioxide 25 23 (22-30) mmol/L BUN 28 H 27 H (8-23) mg/dL Creatinine 1.0 1.0 (0.6-1.1) mg/dL Glucose 91 96 (70-105) mg/dL Calcium 9.4 8.1 L (8.6-10.4) mg/dL Total Bilirubin 0.6 0.3 (0.1-1.0) mg/dL AST 17 11 (<32) U/L ALT 9 6 (<40) U/L Alkaline Phosphatase 68 63 (39-117) U/L Total Protein 6.2 5.3 L (5.9-8.4) gm/dL Albumin 3.7 3.0 L (3.2-5.2) gm/dL All other labs normal. A/P Assessment and plan (1) Pyelonephritis of right kidney: Status: Acute (2) Hydronephrosis of right kidney: Status: Acute Narrative A/P Narrative: Cystoscopy and right ureteroscopy to rule out stone or tumor. Placement of right ureteral stent to relieve hydronephrosis and continue IV antibiotic therapy Time Spent With Patient Time: Total time spent is greater than 50% in coordination of care (as documented) at patient's floor/unit and/or counseling patient:
[2021-04-21] MEDS ORDERED: fentaNYL 100 MCG/2 ML VIAL IV ONE (11:00)
[2021-04-21] MEDS ORDERED: LIDOCAINE HCL/PF 100 MG/5 ML SYRINGE IV ONE (11:00)
[2021-04-21] MEDS ORDERED: DEXAMETHASONE 10 MG/ML VIAL ONE (11:00)
[2021-04-21] MEDS ORDERED: ONDANSETRON 4 MG/2 ML VIAL ONE (11:00)
[2021-04-21] MEDS ORDERED: PROPOFOL 200 MG/20 ML VIAL IV ONE (11:00)
[2021-04-21] MEDS ORDERED: KETAMINE 50 MG/ML ML ONE (11:00)
[2021-04-21] MEDS ORDERED: ePHEDrine 50 MG/ML AMPUL IV ONE (11:00)
[2021-04-21] MEDS ORDERED: PHENYLEPHRINE 10 MG/ML VIAL ONE (11:00)
[2021-04-21] MEDS ORDERED: METOPROLOL TARTRATE 5 MG/5 ML VIAL IV PRN (11:19)
[2021-04-21] MEDS ORDERED: FLUMAZENIL 0.1 MG/ML ML IV PRN (11:19)
[2021-04-21] MEDS ORDERED: ATROPINE SULFATE 0.4 MG/ML VIAL IV PRN (11:19)
[2021-04-21] MEDS ORDERED: fentaNYL 100 MCG/2 ML VIAL IV PRN (11:19)
[2021-04-21] MEDS ORDERED: IPRATROPIUM/ALBUTEROL 3 ML AMPUL.NEB NEB PRN (11:19)
[2021-04-21] MEDS ORDERED: METHOCARBAMOL 1,000 MG/10 ML VIAL IV PRN (11:19)
[2021-04-21] MEDS ORDERED: ePHEDrine 50 MG/ML AMPUL IV PRN (11:19)
[2021-04-21] MEDS ORDERED: NALOXONE HCL 0.4 MG/ML VIAL IV PRN (11:19)
[2021-04-21] MEDS ORDERED: ACETAMINOPHEN 1,000 MG/100 ML BAG IV ONE (11:19)
[2021-04-21] MEDS ORDERED: diphenhydrAMINE 50 MG/ML VIAL IV PRN (11:19)
[2021-04-21] MEDS ORDERED: PROMETHAZINE 25 MG/ML VIAL IV PRN (11:19)
--- NOTE | 2021-04-21 11:24 | Internal Med Progress Note ---
SUBJECTIVE Subjective Patient information: Note initiated : 04/21/21 at 11:21 am Service Date, if different from initiated Date: [] Patient: Lore Howell a 70 y/o F admitted on 04/20/21 for Cystoscopy, Ureteroscopy and Right Ureteral Stent . Chief Complaint: [RUQ and RLQ abdominal pain.] History of present illness: Ms. Howell is a 70 year old F history of essential hypertension, mixed dyslipidemia, hypothyroidism, bilateral hip osteoarthritis, obstructive sleep apnea on CPAP, presenting with 1 month history of right upper and lower quadrant abdominal pain. She denies any prior similar episode. She denies any associated trauma or injury. She has acute onset right upper quadrant and right lower quadrant abdominal pain with radiations to the back. Severe T of the pain 6 out of 10 to 8 out of 10. The pain is sharp in nature. The pain is intermittent. Laying flat with partially alleviate the pain. There does not seem to be any particular exacerbating factors. Associated symptoms including mild nausea since 2 days ago. Denies any urinary symptoms suggest dysuria, increasing urinary frequency or urgency. Denies any fever, chills, or diaphoresis. Denies any general body weakness or change in appetite. Her symptoms got worse since 2 days ago so she decided to come to our ED for evaluation today. Vital signs within normal limits. Labs significant for leukocytosis with WBC 17.3. UA suggestive presence of urinary tract infections. Abdominal pelvis CT shows the presence of Irwin ureter and hydronephrosis of the right side suspecting of downstream obstructions. No stone was visualized, though. 04/21: Afebrile overnight. Urine culture growing gram negative bacillus. Otherwise no other major overnight events. Moderate RUQ and RLQ abdominal pain. Constitutional Vitals: Vital Signs Temp Pulse Resp BP Pulse Ox 36.4 C 83 16 105/50 94 04/21/21 07:27 04/21/21 07:27 04/21/21 07:27 04/21/21 07:27 04/21/21 07:27 Period Temp Pulse Resp BP Sys/Dela Cruz Pulse Ox Last 24 Hr 36.4 C-37.1 C 74-91 16-18 95-119/49-91 89-96 Intake and Output 04/20/21 04/21/21 04/21/21 21:59 05:59 13:59 Intake Total 1000 1542 Output Total 400 325 Balance 600 1217 Weight 63.639 kg Intake & Output: Intake & Output 04/20/21 04/21/21 04/21/21 21:59 05:59 13:59 Intake Total 1000 1542 Output Total 400 325 Balance 600 1217 Weight 63.639 kg Intake: IV 1000 942 Sodium Chloride 0.9% 1,000 ml @ 1000 942 100 mls/hr IV .Q10H [facility] Rx#: [id number] Oral 600 Output: Void Amount 400 325 Other: Meal Applesauce & tuna salad Jello Percent of Meal Consumed 75% 75% Feeding Ability Independent Independent Urine Appearance Clear Clear Urine Color Dark Yellow Dark Yellow General appearance: cooperative and no acute distress Head Head exam: Present atraumatic and normocephalic Eye Eye exam: Present EOMI and PERRL ENT ENT exam: Present mucous membranes moist, normal exam and normal external ear exam Neck Neck exam: Present normal inspection; Absent lymphadenopathy, tenderness and thyromegaly Respiratory Respiratory exam: Absent accessory muscle use, respiratory distress and wheezes Cardiovascular Cardiovascular exam: Present normal rate and rhythm; Absent JVD GI/Abdominal GI/Abdominal exam: Present normal bowel sounds, soft and tenderness (RUQ and RLQ ); Absent organomegaly Extremities Exam Extremities exam: Present full ROM, normal capillary refill and normal inspection; Absent tenderness Neurological Exam Neurological exam: Present alert, CN II-XII intact and oriented X3; Absent motor sensory deficit Psychiatric Psychiatric exam: Present normal affect and normal mood; Absent anxious and depressed Skin Skin exam: Present dry and intact OBJ DATA Labs CBC & Chem 7: 04/21/21 05:20 04/21/21 05:20 Labs: Abnormal Lab Results 04/21/21 04/21/21 04/20/21 05:20 05:20 17:40 WBC 13.0 H RBC 3.20 L Hgb 7.8 L Hct 26.2 L MCH 24.4 L MCHC 29.8 L RDW 16.5 H MPV 12.0 H Neut % (Auto) 92.9 H Lymph % (Auto) 3.7 L Lymph # (Auto) 0.48 L Absolute Neutrophils 12.09 H Anion Gap 7.0 L BUN 27 H Calcium 8.1 L Iron 8 L Transferrin % Sat 3 L Total Protein 5.3 L Albumin 3.0 L Procalcitonin Urine Appearance Urine Protein Urine Ketones Urine Nitrate Ur Leukocyte Esterase Urine RBC Urine WBC Ur Squamous Epith Cells Urine Bacteria 04/20/21 04/20/21 04/20/21 15:44 14:40 14:40 WBC RBC Hgb Hct MCH MCHC RDW MPV Neut % (Auto) Lymph % (Auto) Lymph # (Auto) Absolute Neutrophils Anion Gap 6.0 L BUN 28 H Calcium Iron Transferrin % Sat Total Protein Albumin Procalcitonin 0.97 H Urine Appearance Cloudy A Urine Protein 30 A Urine Ketones 5 A Urine Nitrate Pos A Ur Leukocyte Esterase 500 A Urine RBC 12 H Urine WBC > 182 H Ur Squamous Epith Cells 9 H Urine Bacteria Mod A 04/20/21 14:40 WBC 17.3 H RBC 3.69 L Hgb 9.0 L Hct 29.6 L MCH 24.4 L MCHC 30.4 L RDW 16.4 H MPV 11.6 H Neut % (Auto) 92.0 H Lymph % (Auto) 4.3 L Lymph # (Auto) 0.75 L Absolute Neutrophils 15.90 H Anion Gap BUN Calcium Iron Transferrin % Sat Total Protein Albumin Procalcitonin Urine Appearance Urine Protein Urine Ketones Urine Nitrate Ur Leukocyte Esterase Urine RBC Urine WBC Ur Squamous Epith Cells Urine Bacteria Meds: Medications Acetaminophen (Acetaminophen 325 Mg Tablet) 650 mg PO Q6HP PRN; Protocol PRN Reason: Per Pain Protocol/Fever > 101 Albuterol/Ipratropium (Ipratropium/Albuterol 3 Ml Ampul.Neb) 3 ml NEB ONCE PRN PRN Reason: Wheezing Stop: 04/21/21 13:19 Amlodipine Besylate (Amlodipine 5 Mg Tablet) 5 mg PO QDAY [facility] Last Admin: 04/21/21 08:32 Dose: 5 mg Documented by: Ascorbic Acid (Ascorbic Acid 500 Mg Tablet) 500 mg PO BID [facility] Last Admin: 04/21/21 08:22 Dose: Not Given Documented by: Atropine Sulfate (Atropine Sulfate 0.4 Mg/Ml Vial) 0.4 mg IV ONCE PRN PRN Reason: Bradycardia Stop: 04/21/21 13:19 Calcium Carbonate/Glycine (Calcium (Oyster Shell) 500 Mg Tablet) 500 mg PO BID [facility] Last Admin: 04/21/21 08:22 Dose: Not Given Documented by: Diphenhydramine HCl (Diphenhydramine 50 Mg/Ml Vial) 25 mg IV ONCE PRN PRN Reason: ITCH Stop: 04/21/21 13:19 Docusate Sodium (Docusate Sodium 100 Mg Capsule) 100 mg PO BID [facility] Last Admin: 04/21/21 08:22 Dose: Not Given Documented by: Ephedrine Sulfate (Ephedrine 50 Mg/Ml Ampul) 0 mg IV Q30M PRN PRN Reason: Hypotension Stop: 04/21/21 13:19 Fentanyl (Fentanyl 100 Mcg/2 Ml Vial) 25 mcg IV Q2M PRN PRN Reason: Pain Stop: 04/21/21 13:19 Flumazenil (Flumazenil 0.1 Mg/Ml Ml) 0.1 mg IV Q2MIN PRN PRN Reason: BENZODIAZEPINE REVERSAL Stop: 04/21/21 13:19 Sodium Chloride (Sodium Chloride 0.9%) 1,000 mls @ 100 mls/hr IV .Q10H [facility] Last Admin: 04/21/21 04:36 Dose: 100 mls/hr Documented by: Ceftriaxone Sodium 2 gm/ (Dextrose) 50 mls @ 100 mls/hr IV Q24H [facility] Last Admin: 04/21/21 08:31 Dose: 100 mls/hr Documented by: Acetaminophen (Ofirmev) 1,000 mg in 100 mls @ 200 mls/hr IV ONCE ONE Stop: 04/21/21 11:48 Iron Carb/Multivit/Order Taker/Folic Acid (Multivit,Ther Iron,Ca,Fa & Min 1 Tablet) 1 tab PO DAILY [facility] Last Admin: 04/21/21 08:22 Dose: Not Given Documented by: Levothyroxine Sodium (Levothyroxine 50 Mcg Tablet) 50 mcg PO QAMAC [facility] Last Admin: 04/21/21 06:46 Dose: 50 mcg Documented by: Methocarbamol (Methocarbamol 1,000 Mg/10 Ml Vial) 750 mg IV ONCE PRN PRN Reason: Muscle Spasm Stop: 04/21/21 13:19 Metoprolol Tartrate (Metoprolol Tartrate 5 Mg/5 Ml Vial) 2.5 mg IV Q5MIN PRN PRN Reason: Tachyarrhythmias Stop: 04/21/21 13:19 Morphine Sulfate (Morphine 4 Mg/Ml Vial) 2 mg IV Q4HP PRN; Protocol PRN Reason: Per Pain Protocol Naloxone HCl (Naloxone Hcl 0.4 Mg/Ml Vial) 0.1 mg IV Q2MIN PRN PRN Reason: Opiate Reversal Stop: 04/21/21 13:19 Naproxen (Naproxen 250 Mg Tablet) 250 mg PO BIDCOX BRANSON; Protocol Last Admin: 04/21/21 06:46 Dose: Not Given Documented by: Ondansetron HCl (Ondansetron 4 Mg/2 Ml Vial) 4 mg IV Q6HP PRN PRN Reason: Nausea And Vomiting Last Admin: 04/21/21 09:57 Dose: 4 mg Documented by: Oxycodone HCl (Oxycodone Hcl 5 Mg Tablet) 10 mg PO Q4HP PRN; Protocol PRN Reason: Per Pain Protocol Last Admin: 04/21/21 05:46 Dose: 10 mg Documented by: Rupa Cap 1 dose PO DAILY [facility] Last Admin: 04/21/21 08:22 Dose: Not Given Documented by: Mometasone- Dimethicone 0.1-5 % Cream 0 dose TOPICAL DAILY [facility] Last Admin: 04/21/21 08:32 Dose: Not Given Documented by: Promethazine HCl (Promethazine 25 Mg/Ml Vial) 6.25 mg IV Q15M PRN PRN Reason: Nausea And Vomiting Stop: 04/21/21 13:19 Ramipril (Ramipril 2.5 Mg Capsule) 2.5 mg PO QDAY [facility] Last Admin: 04/21/21 08:32 Dose: Not Given Documented by: Senna (Sennosides 1 Tablet) 2 tab PO [facility] Last Admin: 04/20/21 22:07 Dose: Not Given Documented by: Simvastatin (Simvastatin 20 Mg Tablet) 20 mg PO [facility] Last Admin: 04/20/21 22:07 Dose: Not Given Documented by: Sodium Chloride (0.9 % Sodium Chloride 10 Ml Syringe) 10 ml IV Q8 [facility] Last Admin: 04/21/21 04:59 Dose: Not Given Documented by: Trazodone HCl (Trazodone Hcl 50 Mg Tablet) 50 mg PO HSP PRN PRN Reason: Insomnia Valacyclovir HCl (Valacyclovir 1,000 Mg Tablet) 2,000 mg PO BIDP PRN PRN Reason: COLD SORES Vitamin D (Vitamin D3 5,000 Unit Capsule) 5,000 unit PO DAILY [facility] Last Admin: 04/21/21 08:22 Dose: Not Given Documented by: A/P Assessment and plan (1) LOVELY on CPAP: Status: Chronic (2) Shingles: Status: Chronic (3) Hypothyroidism, unspecified: Status: Chronic (4) Hyperlipidemia, unspecified: Status: Chronic (5) Essential (primary) hypertension: Status: Chronic (6) Pyelonephritis of right kidney: Status: Acute (7) Hypochromic anemia: Status: Acute Narrative A/P Narrative: 1. Right pyelonephritis with associated hydronephrosis and hydroureter, possible downstream obstruction: Stays in inpatient med surg Serial lactic acid Procalcitonin Blood culture X2, no growth to date Urine culture, growing gram negative bacillus NS 1L bolus given in the ED, to be followed by NS@100c/hr Rocephin 2gm IV daily cbc w/ auto diff in the morning to trend WBC Tylenol PRN fever Zofran IV PRN nausea vomiting Oxycodone PRN moderate pain Morphine IV PRN severe pain Dr. Lin: possible urinary stent placement today with cystoscopy and right uretroscopy NPO after midnight for the planned procedure 2. Essential HTN: Currently normotensive Continue home regimen of oral antihypertensives (Amlodipine, Ramipril) 3. Mixed dyslipidemia: Continue statin therapy 4. Hypothyroidism: Continue thyroid replacement therapy 5. LOVELY on CPAP: Continue CPAP at night while sleeping 6. Bilateral hip osteoarthritis: Naproxen Oxycodone PRN moderate pain Morphine IV PRN severe pain 7. Hypochromic anemia: Iron panel Folate level Vitamin B12 level cbc w/ auto diff in the morning to trend H/H; transfuse pRBC if hemoglobin <7.0, active bleeding, or symptomatic GI ppx: not currently indicated DVT ppx: SCDs Code status: Full Prognosis: guarded Disposition: inpatient med surg Time Spent With Patient Time: Total time spent is greater than 50% in coordination of care (as docu mented) at patient's floor/unit and/or counseling patient: QUALITY VTE Deep Vein Thrombosis/Pulmonary Embolism Present on Admission: No
[2021-04-21] MEDS ORDERED: ACYCLOVIR TOPICAL PRN (11:25)
[2021-04-21] MEDS ORDERED: IOVERSOL 20 ML VIAL IJ ONE (11:40)
--- NOTE | 2021-04-21 12:17 | Brief Operative Note ---
Brief Operative Note Date of procedure: 04/21/21 Pre-op diagnosis: Right hydroureteronephrosis Post-op diagnosis: same Procedure: Cystoscopy with attempted stent placement Grafts/Implants: No Anesthesia: GETA Findings: Probable stricture right distal ureter and right UPJ obstruction Surgeon: Kyle Lin Estimated blood loss (cc): 0 Tourniquet Time (Minutes): 0 Specimens Removed/Pathology: none sent Condition: stable Disposition: PACU
--- NOTE | 2021-04-21 12:26 | Operative Note ---
Operative Note Operative Note: Preop diagnosis--right hydroureteronephrosis with pyelonephritis Surgeon--Kyle Lin Operation performed--cystoscopy with attempted stent placement Postop diagnosis--right UPJ obstruction and probable right ureteral stricture distally Anesthesia--General Complications--none Specimen--none Blood loss--none --Date of operation and dictation--04/21/2021 Indication--this 70-year-old female came in with progressive right flank pain which is building up over the last few weeks. In the emergency room she was found to have a urinary tract infection with urine positive for white cells red cells and nitrites. She has no history of stone. A CT showed a grossly dilated renal pelvis and a dilated ureter down to the ureterovesical junction. The actual distal ureter could not be evaluated because of artifact from her total hip prosthesis. She is in at this time for stent placement and if there is a distal stone remove that. Description--the patient was placed on the operating table in a supine position. A timeout was called at which time we confirmed the patient procedure position and presence of antibiotic. After satisfactory induction of general anesthesia she was placed in the lithotomy position prepped and draped and a 21 [place] cystoscope was inserted into the bladder. The left ureteral orifice was easily identified. There was the formation of the trigone on the right side and ultimately the right ureteral. Orifice was identified and cannulated. A safety tip guidewire could be passed up to the renal pelvis where it was coiled. The urethral meatus was very small. A 5 [place] open tip catheter was passed over the wire but could not be passed up into the kidney. A retrograde study was done and there was a large patulous renal pelvis consistent with a congenital ureteropelvic junction obstruction. The open tip catheter was removed and an attempt was made to dilate the orifice in order to do ureteroscopy and evaluate the distal ureter. The only ureteral dilator was a 16 [place]ian. It could not be passed. There was no dilation of the orifice that was accomplished. The decision at that point was made to place the stent and come back at another time. A 6 [place]ian stent could not be passed over the guidewire. It was buckling on the wire and could not be inserted beyond just inside the ureteral orifice. Multiple attempts were made and no other dilators were located. At that point the procedure was discontinued and we will try to do nephrostomy tube placement.
--- NOTE | 2021-04-21 13:59 | XRay Report ---
INDICATION: stent placement TECHNIQUE: Intraoperative fluoroscopy utilized by Dr. Lin. Single spot film obtained. 35.4 mGy exposure and 2.1 minutes fluoroscopy used IMPRESSION: Intraoperative fluoroscopy and spot films Interpreted and Authenticated by: Jarrell Bolden 04/21/21
--- NOTE | 2021-04-21 14:33 | Discharge Summary ---
Discharge Provider Provider Patient information: Note initiated : 04/21/21 at 2:28 pm Service Date, if different from initiated Date: [] Patient: Lore Howell a 70 y/o F admitted on 04/20/21 for Cystoscopy, Ureteroscopy and Right Ureteral Stent . Chief Complaint: [RUQ and RLQ abdominal pain] History of present illness: Ms. Howell is a 70 year old F history of essential hypertension, mixed dyslipidemia, hypothyroidism, bilateral hip osteoarthritis, obstructive sleep apnea on CPAP, presenting with 1 month history of right upper and lower quadrant abdominal pain. She denies any prior similar episode. She denies any associated trauma or injury. She has acute onset right upper quadrant and right lower quadrant abdominal pain with radiations to the back. Severe T of the pain 6 out of 10 to 8 out of 10. The pain is sharp in nature. The pain is intermittent. Laying flat with partially alleviate the pain. There does not seem to be any particular exacerbating factors. Associated symptoms including mild nausea since 2 days ago. Denies any urinary symptoms suggest dysuria, increasing urinary frequency or urgency. Denies any fever, chills, or diaphoresis. Denies any general body weakness or change in appetite. Her symptoms got worse since 2 days ago so she decided to come to our ED for evaluation today. Vital signs within normal limits. Labs significant for leukocytosis with WBC 17.3. UA suggestive presence of urinary tract infections. Abdominal pelvis CT shows the presence of [place] ureter and hydronephrosis of the right side suspecting of downstream obstructions. No stone was visualized, though. 04/21: Afebrile overnight. Urine culture growing gram negative bacillus. Otherwise no other major overnight events. Moderate RUQ and RLQ abdominal pain. Date of admission: 04/20/21 18:40 Discharge date: 04/21/21 Primary care physician: Thalia Álvarez DO Consults: 04/20/21 Consult to Physician [CONS] Stat Comment: pyelonephritis concerning for obstruction Consulting Provider: Kyle Lin Reason For Exam: Physician to Consult 04/20/21 16:31 Consult to Physician [CONS] Stat Comment: Consulting Provider: Pavel Mccormick Reason For Exam: Physician to Consult Discharge Meds Discharge Medications Home Medications acyclovir 5 gm TP PRN PRN 12/01/16 [History Confirmed 04/20/21 Last Taken 04/20/20 19:42] calcium carbonate 500 mg PO BID 12/01/16 [History Confirmed 04/20/21 Last Taken 04/19/21 04:00] multivitamin 1 each PO DAILY 12/01/16 [History Confirmed 04/20/21 Last Taken 04/19/21 04:00] cholecalciferol (vitamin D3) 125 mcg (5,000 unit) capsule 5,000 unit PO QDAY 02/06/19 [History Confirmed 04/20/21 Last Taken 04/19/21 04:00] ascorbate calcium (vitamin C) 500 mg tablet 1 g PO BID tab 03/18/19 [History Confirmed 04/20/21 Last Taken 04/19/21 04:00] acyclovir 800 mg tablet 800 mg PO QDAY #10 tab 11/23/20 [Rx Confirmed 04/20/21 Last Taken 01/01/21 08:00] naproxen 500 mg tablet 250 mg PO Q12H #180 tab 11/23/20 [Rx Confirmed 04/20/21 Last Taken 04/20/21 06:00] amlodipine 5 mg tablet 5 mg PO QDAY #90 tab 01/24/21 [Rx Confirmed 04/20/21 Last Taken 04/19/21 04:00] levothyroxine 50 mcg tablet 50 mcg PO DAILY #90 tab 01/24/21 [Rx Confirmed 04/20/21 Last Taken 04/19/21 04:00] ramipril 2.5 mg capsule 2.5 mg PO QDAY #90 cap 01/24/21 [Rx Confirmed 04/20/21 Last Taken 04/19/21 04:00] Florajen3 1 cap PO DAILY 04/20/21 [History Confirmed 04/21/21 Last Taken 04/19/21 04:00] mometasone-dimethicone 0 applic TOPICAL .COMPLEX 04/20/21 [History Confirmed 04/20/21 Last Taken Unknown] pravastatin 40 mg PO QDAY 04/20/21 [History Confirmed 04/20/21 Last Taken Unknown] valacyclovir [Valtrex] 2,000 mg PO Q12H 04/20/21 [History Confirmed 04/20/21 Last Taken Unknown] COURSE Hospital Course Hospital course: Patient was admitted on 04/20/21 for right pyelonephritis with right hydronephrosis and hydroureter. IV fluid was started. After urine and blood cultures were collected, Rocephin was started. Urologist Dr. Lin was consulted and performed cystoscopy and ureteroscopy. Stent placement was attempted but unsuccessful. Transfer request to [facility] was made for potential stent placement by interventional radiologist and/or nephrostomy tube placement by their urologist. Dr. Pendleton was the accepting hospitalist. Discharge diagnosis: Pyelonephritis Time Spent with Patient Time attestation: Total time spent providing and/or coordinating discharge services: Patient was admitted on 04/20/21 for right pyelonephritis with right hydronephrosis and hydroureter. IV fluid was started. After urine and blood cultures were collected, Rocephin was started. Urologist Dr. Lin was consult ed and performed cystoscopy and ureteroscopy. Stent placement was attempted but unsuccessful. Transfer request to [facility] was made for potential stent placement by interventional radiologist and/or nephrostomy tube placement by their urologist. Dr. Pendleton was the accepting hospitalist. EXAM Constitutional Vitals: Temp Pulse Resp BP Pulse Ox 36.9 C 82 14 111/54 92 04/21/21 12:50 04/21/21 12:50 04/21/21 12:50 04/21/21 12:50 04/21/21 12:50 General appearance: cooperative and no acute distress Head Head exam: Present atraumatic and normocephalic Eye Eye exam: Present EOMI and PERRL ENT ENT exam: Present mucous membranes moist, normal exam and normal external ear exam Neck Neck exam: Present normal inspection; Absent lymphadenopathy, tenderness and thyromegaly Respiratory Respiratory exam: Absent accessory muscle use, respiratory distress and wheezes Cardiovascular Cardiovascular exam: Present normal rate and rhythm; Absent JVD GI/Abdominal GI/Abdominal exam: Present normal bowel sounds, soft and tenderness (RUQ and RLQ); Absent organomegaly Extremities Exam Extremities exam: Present full ROM, normal capillary refill and normal inspection; Absent tenderness Neurological Exam Neurological exam: Present alert, CN II-XII intact and oriented X3; Absent motor sensory deficit Psychiatric Psychiatric exam: Present normal affect and normal mood; Absent anxious and depressed Skin Skin exam: Present dry and intact Discharge Data Data Completed and Pending Labs on day of discharge: Labs from last 24 hours 04/21/21 04/21/21 04/20/21 05:20 05:20 17:40 WBC 13.0 H RBC 3.20 L Hgb 7.8 L Hct 26.2 L MCV 81.9 MCH 24.4 L MCHC 29.8 L RDW 16.5 H Plt Count 188 MPV 12.0 H Neut % (Auto) 92.9 H Lymph % (Auto) 3.7 L [place] % (Auto) 2.8 Eos % (Auto) 0.4 Baso % (Auto) 0.2 Lymph # (Auto) 0.48 L [place] # (Auto) 0.37 Eos # (Auto) 0.05 Baso # (Auto) 0.02 Absolute Neutrophils 12.09 H VBG Lactic Acid Sodium 138 Potassium 3.5 Chloride 108 Carbon Dioxide 23 Anion Gap 7.0 L BUN 27 H Creatinine 1.0 GFR Calculation 56 Glucose 96 Calcium 8.1 L Iron TIBC Unsat Iron Binding Transferrin % Sat Total Bilirubin 0.3 AST 11 ALT 6 Alkaline Phosphatase 63 Total Protein 5.3 L Albumin 3.0 L Globulin 2.3 Albumin/Globulin Ratio 1.3 Lipase Vitamin B12 Folate 13.9 Procalcitonin Urine Color Urine Appearance Urine pH Ur Specific [place] Urine Protein Urine Glucose (UA) Urine Ketones Urine Occult Blood Urine Nitrate Urine Bilirubin Urine Urobilinogen Ur Leukocyte Esterase Urine RBC Urine WBC Ur Squamous Epith Cells Urine Bacteria 04/20/21 04/20/21 04/20/21 17:40 15:44 14:40 WBC RBC Hgb Hct MCV MCH MCHC RDW Plt Count MPV Neut % (Auto) Lymph % (Auto) [place] % (Auto) Eos % (Auto) Baso % (Auto) Lymph # (Auto) [place] # (Auto) Eos # (Auto) Baso # (Auto) Absolute Neutrophils VBG Lactic Acid Sodium Potassium Chloride Carbon Dioxide Anion Gap BUN Creatinine GFR Calculation Glucose Calcium Iron 8 L TIBC 316 Unsat Iron Binding 308 Transferrin % Sat 3 L Total Bilirubin AST ALT Alkaline Phosphatase Total Protein Albumin Globulin Albumin/Globulin Ratio Lipase Vitamin B12 559.2 Folate Procalcitonin 0.97 H Urine Color Yellow Urine Appearance Cloudy A Urine pH 6.0 Ur Specific [place] 1.047 Urine Protein 30 A Urine Glucose (UA) Neg Urine Ketones 5 A Urine Occult Blood 0.20 Urine Nitrate Pos A Urine Bilirubin Neg Urine Urobilinogen Neg Ur Leukocyte Esterase 500 A Urine RBC 12 H Urine WBC > 182 H Ur Squamous Epith Cells 9 H Urine Bacteria Mod A 04/20/21 04/20/2104/20/21 14:40 14:40 14:40 WBC 17.3 H RBC 3.69 L Hgb 9.0 L Hct 29.6 L MCV 80.2 MCH 24.4 L MCHC 30.4 L RDW 16.4 H Plt Count 208 MPV 11.6 H Neut % (Auto) 92.0 H Lymph % (Auto) 4.3 L [place] % (Auto) 3.4 Eos % (Auto) 0.1 Baso % (Auto) 0.2 Lymph # (Auto) 0.75 L [place] # (Auto) 0.59 Eos # (Auto) 0.01 Baso # (Auto) 0.03 Absolute Neutrophils 15.90 H VBG Lactic Acid 0.9 Sodium 135 Potassium 3.5 Chloride 104 Carbon Dioxide 25 Anion Gap 6.0 L BUN 28 H Creatinine 1.0 GFR Calculation 56 Glucose 91 Calcium 9.4 Iron TIBC Unsat Iron Binding Transferrin % Sat Total Bilirubin 0.6 AST 17 ALT 9 Alkaline Phosphatase 68 Total Protein 6.2 Albumin 3.7 Globulin 2.5 Albumin/Globulin Ratio 1.5 Lipase 12 Vitamin B12 Folate Procalcitonin Urine Color Urine Appearance Urine pH Ur Specific [place] Urine Protein Urine Glucose (UA) Urine Ketones Urine Occult Blood Urine Nitrate Urine Bilirubin Urine Urobilinogen Ur Leukocyte Esterase Urine RBC Urine WBC Ur Squamous Epith Cells Urine Bacteria Preliminary micro results at discharge 04/20/21 15:44 Urine Culture - Preliminary Urine - Clean Void Mid-Stream Gram negative bacillus Discharge Plan Patient/Caregiver Discharge Instructions Activity: increase activity as tolerated Diet: NPO Activity Restrictions/Additional Instructions: Transfer to [place] under the care of Dr. Pendleton for ureteral stent/nephrostomy tube placement Prescriptions: Continued naproxen [Naprosyn] 500 mg tablet 250 mg PO Q12H Qty: 180 RF: 0 acyclovir 800 mg tablet 800 mg PO QDAY Qty: 10 RF: 0 amlodipine 5 mg tablet 5 mg PO QDAY Qty: 90 RF: 1 ramipril 2.5 mg capsule 2.5 mg PO QDAY Qty: 90 RF: 1 levothyroxine 50 mcg tablet 50 mcg PO DAILY Qty: 90 RF: 1 cholecalciferol (vitamin D3) 5,000 unit capsule 5,000 unit PO QDAY RF: 0 ascorbate calcium (vitamin C) 500 mg tablet 1 g PO BID RF: 0 multivitamin 1 EACH tablet 1 each PO DAILY RF: 0 calcium carbonate 500 MG tablet 500 mg PO BID RF: 0 acyclovir 5 GM cream 5 gm TP PRN PRN (Reason: Mouth Sore Pain) RF: 0 pravastatin 40 mg Tablet 40 mg PO QDAY RF: 0 valacyclovir [Valtrex] 1 gram Tablet 2,000 mg PO Q12H RF: 0 mometasone-dimethicone 0.1-5 % Cream 0 applic TOPICAL .COMPLEX RF: 0 Florajen3 1 cap PO DAILY RF: 0 Discontinued epinephrine [EpiPen 2-[place]] 0.3 mg/0.3 mL auto-injector 0.3 mg IM ONCE RF: 0 (DME) CPAP machine Qty: 1 RF: 0 (DME) CPAP 9 to 15 cmH20 RF: 0 Follow Up Plan Follow up with: Thalia Álvarez DO [Primary Care Provider] - Patient Disposition: Xfer Acute [facility] Prognosis: Serious Rehab Potential: Undetermined Overall status at discharge: patient is not back to baseline Discharge Orders: Discharge Order (Routine); Ordered 04/21/21 Ordered By: Pavel SALGUERO VTE Deep Vein Thrombosis/Pulmonary Embolism Present on Admission: No
[2021-04-21] MEDS ORDERED: ASCORBIC ACID 500 MG TABLET PO SCH (21:00)
[2021-04-22] MEDS ORDERED: VITAMIN D3 5,000 UNIT CAPSULE PO SCH (09:00)
[2021-04-22] MEDS ORDERED: ACYCLOVIR 400 MG TABLET PO SCH (09:00)
== END 2021-04-21 15:27 | disposition short-term general hospital (02) ==
LOC: ED 14:16 → MEDSUR 18:40
PROVIDERS: ADMIT Internal Medicine; ATTEND Internal Medicine